=== PATIENT | male | born 1975 | race Caucasian/White ===

== ENCOUNTER 2021-12-25 08:38 | Emergency (ER) | payer OTHER, SELFPAY ==
[2021-12-25 08:52] VITALS: BP 123/84; PULSE 78; RESP 14; TEMP 36.7; O2SAT 97
--- NOTE | 2021-12-25 09:24 | ED.ABDPAIN ---
HPI - Abdominal Pain General Chief Complaint: Abdominal Pain Stated Complaint: Lower abdominal pains Time Seen by Provider: 12/25/21 09:26 Source: patient, RN notes reviewed and old records reviewed Mode of arrival: ambulatory Limitations: no limitations History of Present Illness HPI narrative: 46-year-old male who presents to [facility] care with complaints of 1 week duration of loose formed stools, some abdominal cramping,with decreased appetite. Patient states that that he has discomfort under is umbilicus region intermittent with fever of around 100F for the past 24 hours. He states that he called his PCP and cant get in to be seen till later in the week. Patient reports that he was on antibiotics the week of December for a sinus infection and recently he went to [facility]. Patient reports that he has not had any vomiting or nausea, states mucous noted in stools, denies any known acute foul or seedy stools. MD elicited complaint: abdominal pain and other (loose formed stools) Pertinent past history: other (recent antibiotic use) Onset (ago): week(s) (1) Related Data Allergies Allergy/AdvReac Type Severity Reaction Status Date / Time No Known Allergies Allergy Verified 12/25/21 09:16 Review of Systems Review of Systems: CONSTITUTIONAL: Low grade fevers, chills, or sweats. EYES: Denies visual changes, redness, or discharge. ENT: Denies rhinorrhea, congestion, sore throat, or otalgia. CARDIOVASCULAR: Denies chest pain, palpitations, or edema. RESPIRATORY: Denies cough or dyspnea. GASTROINTESTINAL: Positive for abdominal pain mid abdomen under umbilicus,no nausea, vomiting, positive for loose formed stools. GENITOURINARY: Denies dysuria or hematuria. SKIN: Denies rash or itching. MUSCULOSKELETAL: Denies back pain, joint pain, or myalgia. NEUROLOGIC: Denies headache, numbness, or weakness. PSYCHIATRIC: Positive history of anxiety or depression. All systems reviewed & are unremarkable except as noted in HPI and below PMFSH Past Medical History Medical History Anxiety and depression Essential (primary) hypertension Mixed hyperlipidemia Social History Social History (Updated 12/26/21 @ 17:06 by Marlyn Encarnacion NP) Smoking status: Never smoker Alcohol intake: current Substance use type: does not use Living arrangements: with family Gender identity (if verbalized by the patient): Male Comments At time of signature, agree with nursing past medical, surgical, social and family history. There is no relevant family history pertinent to the presenting complaint Exam Narrative: GENERAL: Well-appearing, well-nourished, and in no acute distress. HEAD: Normocephalic, atraumatic. EYES: PERRLA and EOMI. ENT: Nares clear, no rhinorrhea or epistaxis. Mucous membranes moist.TM's normal with good light reflex throat pink with no lesions or exudates no tonsil enlargement NECK: Supple.no lymphadenopathy CHEST: Clear to auscultation. No respiratory distress.SAO2 97% on room air HEART: Regular rate and rhythm. No murmur heard. Normal peripheral pulses. ABDOMEN: Soft, tender below umbilicus, negative for any McBurney tenderness, nondistended, normal active bowel sounds. EXTREMITIES: Normal range of motion. No edema. SKIN: Warm, dry, no rash. NEURO: No focal deficits. Alert and oriented x3. Course Course Level of Care: Express Care Visit Vital Signs Vital signs: Vital Signs Temperature 36.7 C 12/25/21 08:52 Pulse Rate 78 12/25/21 08:52 Respiratory Rate 14 12/25/21 08:52 Blood Pressure 123/84 12/25/21 08:52 Pulse Oximetry 97 12/25/21 08:52 Oxygen Delivery Room Air 12/25/21 08:52 Temperature 36.7 C 12/25/21 08:52 Pulse Rate 78 12/25/21 08:52 Respiratory Rate 14 12/25/21 08:52 Blood Pressure 123/84 12/25/21 08:52 Pulse Oximetry 97 12/25/21 08:52 Oxygen Delivery Room Air 12/25/21 08:52 MDM - Abdominal Pain Differentia
== END 2021-12-25 10:00 | disposition home or self-care (01) ==
PROVIDERS: Emergency Provider Registered Nurse; PCP Family Medicine
DX: K52.9 Noninfective gastroenteritis and colitis, unspecified (principal); I10 Essential (primary) hypertension; E78.2 Mixed hyperlipidemia; F41.9 Anxiety disorder, unspecified; F32.A Depression, unspecified
CPT/HCPCS: 99213; G0463

== ENCOUNTER 2021-12-28 10:43 | Emergency (ER) | payer OTHER, SELFPAY ==
--- NOTE | ~2021-12-28 | CT_ITS ---
EXAMINATION: CT abdomen pelvis w con INDICATION: Abdominal cramping and diarrhea TECHNIQUE: Computed tomographic images of the abdomen and pelvis were obtained after the administrati on of 100 cc of Omnipaque 350 intravenous contrast. The dose-length product (DLP) was 728.83 mGy-cm. Automated exposure control and iterative reconstruction technique were employed. COMPARISON: None available FINDINGS: Minimal dependent atelectasis is present in the lung bases. The heart size is normal. Cysts of the liver measure up to 12 mm in the left hepatic lobe. The spleen, pancreas, gallbladder, and ad renal glands are normal. The kidneys are unremarkable. No pathologically enlarged abdominal or pelvic lymph nodes are identified. There is no free intraperitoneal gas or evidence of bowel obstruction. C olonic diverticulosis is present without evidence of diverticulitis. There is wall thickening of the colon from the distal descending colon through the rectum. The appendix is normal. There is mild lumb ar spondylosis. IMPRESSION: 1. Wall thickening of the colon from the distal descending colon through the rectum, consistent with colitis. Reviewed, dictated and finalized at location B. IMPRESSION: 1. Wall thickening of the colon from the distal descending colon through the re ctum, consistent with colitis.
[2021-12-28 10:55] VITALS: BP 143/96; PULSE 72; RESP 15; TEMP 37; O2SAT 100
[2021-12-28 11:26] LABS: Basophils Percent Auto 0.4 % (0.2-1.2); Eosinophils Absolute Auto 0.2 K/mm3 (0-0.3); Eosinophils Percent Auto 2.2 % (0-4.4); Hematocrit 43.4 % (42.0-52.0); Hemoglobin 14.3 g/dL (14.0-18.0); Immature Granulocyte Absolute 0.04 K/mm3 (0.00-0.031); Immature Granulocyte Percent A 0.6 % (0-0.5); Lymphocytes Absolute Auto 1.24 K/mm3 (0.9-3.2); Lymphocytes Percent Auto 18.4 % (18.3-44.2); Mean Corpuscular HGB Conc 32.9 g/dl (32-36); Mean Corpuscular Hemoglobin 30.6 pg (26-34); Mean Corpuscular Volume 92.7 fl (80-100); Mean Platelet Volume 9.6 fl (7.4-10.4); Monocytes Absolute Auto 0.7 K/mm3 (0.1-0.6); Monocytes Percent Auto 10.8 % (2.6-8.5); Neutrophils Absolute Auto 4.6 K/mm3 (1.3-6.7); Neutrophils Percent Auto 67.6 % (45.5-73.1); Platelet Count Result 262 k/mm3 (150-375); Red Blood Count 4.68 M/mm3 (4.6-6.20); Red Cell Distribution Width 11.9 % (11.5-14.5); White Blood Count 6.7 K/mm3 (4.5-10.0)
[2021-12-28 11:31] LABS: Lactic Acid Reflex 1.2 mmol/L (0.7-2.0)
[2021-12-28 11:32] LABS: Alanine Aminotransferase 16 U/L (6-50); Albumin Level 4.5 g/dL (3.5-5.1); Alkaline Phosphatase 75 U/L (38-126); Anion Gap 11 mmol/L (8-16); Aspartate Amino Transferase 18 U/L (17-59); Bilirubin,Total 0.7 mg/dL (0.2-1.3); Blood Urea Nitrogen 14 mg/dL (9-20); Calcium 8.6 mg/dL (8.4-10.2); Carbon Dioxide 24 mmol/L (22-30); Chloride 107 mmol/L (98-107); Estimated CRCL calculation 85 ml/min; Estimated Glomerular Filt Rate > 60; Glucose 106 mg/dL (65-110); Lipase 57 U/L (23-300); Sodium 142 mmol/L (137-145)
[2021-12-28] MEDS: SODIUM CHLORIDE 0.9% IV 1,000 ML 999 ML IV CONT (11:46)
[2021-12-28 11:50] VITALS: BP 137/92; PULSE 72; RESP 15; O2SAT 96
[2021-12-28 12:03] LABS: Appearance Urine Clear (Clear); Bilirubin Urine Negative (Negative); Blood Urine Negative (Negative); Color Urine Yellow (Yellow); Glucose Urine UA Negative (Negative); Ketones Urine Negative (Negative); Leukocyte Esterase Ur Trace LEU/UL (Negative); Nitrate Urine Negative (Negative); Protein Urine Trace mg/dL (Negative); Specific Grav Ur >= 1.030 (1.001-1.035); Urobilinogen Urine 0.2 mg/dL (<2.0); pH Urine 5.5 (5.0-9.0)
[2021-12-28 12:10] LABS: Mucus Urine Few /lpf; WBC Urine 21-30 /hpf
[2021-12-28 12:11] LABS: Add Urine Microscopic? YES
[2021-12-28 13:12] VITALS: BP 134/88; PULSE 67; RESP 15; O2SAT 98
[2021-12-28 13:34] LABS: Lactic Acid Reflex 0.9 mmol/L (0.7-2.0)
[2021-12-28 15:00] VITALS: BP 114/66; PULSE 88; RESP 14; O2SAT 100
[2021-12-28 15:17] LABS: Toxigenic C. Diff NEGATIVE (NEGATIVE)
[2021-12-28] MEDS: metroNIDAZOLE 250 MG TABLET 500 MG PO (16:24)
[2021-12-28] MEDS: ERYTHROMYCIN OPHTH OINTMENT 1 GM TUBE 1 APPLIC EACH EYE (16:25)
[2021-12-28] MEDS: CIPROFLOXACIN 500 MG TAB PO (16:25)
[2021-12-28 16:31] VITALS: BP 138/72; PULSE 72; RESP 18; O2SAT 98
--- NOTE | 2021-12-28 16:32 | ED.GENADULT ---
HPI - General Adult General Chief complaint: Nausea/Vomiting/Diarrhea Stated complaint: diarrhea Time Seen by Provider: 12/28/21 10:48 Source: RN notes reviewed History of Present Illness HPI narrative: Patient presents emergency department from home for diarrhea. Patient states has been having diarrhea for the past 10 days states he is having numerous episodes a day that are yellowish in appearance. States is associated with lower abdominal pain described as cramping. Patient states he was on Augmentin for a sinus infection approximately 3 weeks ago he denies having any fevers or chills nausea vomiting or any other symptoms. He had gone to urgent care on Saturday and been referred to his PCP where blood work was obtained and stool culture sent on Saturday but he does not have the results of these back yet patient also reports that he has had bilateral eye redness for the past 2 days with crusting over of his eyelids in the a.m. is concern for bilateral conjunctivitis. He does wear glasses but does not wear contacts Related Data Allergies Allergy/AdvReac Type Severity Reaction Status Date / Time No Known Allergies Allergy Verified 12/28/21 10:58 Review of Systems Review of Systems: Gen.: Denies fevers or chills Eyes: See HPI ENT: Denies congestion Respiratory: Denies shortness of breath or cough CV: Denies chest pain GI: See HPI denies burning, urgency, frequency or hematuria Musculoskeletal: Denies back pain or muscle pain Neuro: Denies numbness, tingling, weakness or focal weakness Skin: Denies rash Except as documented, all other systems reviewed and negative PMFSH Past Medical History Medical History Anxiety and depression Essential (primary) hypertension Mixed hyperlipidemia Social History Social History Smoking status: Never smoker Alcohol intake: current Substance use type: does not use Gender identity (if verbalized by the patient): Male Exam Narrative: APPEARANCE: No acute distress, nontoxic, resting in bed HEENT: Normocephalic, atraumatic, OMM Eyes: PERRL, EOMI, bilateral conjunctival erythema no swelling of the bilateral upper or lower eyelids, no foreign body seen there is thick yellow discharge RESPIRATORY: No respiratory distress, clear to auscultation bilaterally with no rhonchi wheezing or rales CARDIOVASCULAR: RRR s murmur ABDOMINAL: Soft nondistended tender palpation right lower quadrant left lower quadrant no tenderness right upper quadrant left upper quadrant no rebound or guarding MUSCULOSKELETAl: Moves all extremities. No clubbing, cyanosis or edema. NEURO: Awake and alert. Following commands, speech normal, no focal deficits SKIN:: Warm, dry. Normal Color PSYCHIATRIC: Normal affect/mood Course Course Emergency Course: Called patient's PCP and discussed with [employer] on-call stool results are not back yet except for Giardia that was negative for C. difficile has not been returned C. difficile obtained in ED that shows negative results Discussed with Dr. Diaz presentation work-up at this time explained to start patient on Cipro and Flagyl discharged to follow-up as an outpatient Discussed with patient results of workup and diagnosis. Discussed need for follow-up with primary care, proper use of medication, and reasons to return to the emergency department. Patient understands and agrees to current treatment plan Vital Signs Vital signs: Vital Signs Temperature 98.6 F 12/28/21 10:55 Pulse Rate 72 12/28/21 10:55 Respiratory Rate 15 12/28/21 10:55 Blood Pressure 143/96 H 12/28/21 10:55 Pulse Oximetry 100 12/28/21 10:55 Oxygen Delivery Room Air 12/28/21 10:55 Temperature 98.6 F 12/28/21 10:55 Pulse Rate 72 12/28/21 16:31 Respiratory Rate 18 12/28/21 16:31 Blood Pressure 138/72 12/28/21 16:31 Pulse Oximetry 98 12/28/21 16:31 Oxygen Delive
== END 2021-12-28 17:12 | disposition home or self-care (01) ==
PROVIDERS: Emergency Provider Emergency Medicine; PCP Family Medicine
DX: K52.9 Noninfective gastroenteritis and colitis, unspecified (principal); H10.33 Unspecified acute conjunctivitis, bilateral; I10 Essential (primary) hypertension; E78.2 Mixed hyperlipidemia; R82.998 Other abnormal findings in urine
CPT/HCPCS: 36415; 74177; 80053; 81001; 83605; 83690; 85025; 87040; 87086; 87493; 96360; 99284; A9270; J7030; Q9967

== ENCOUNTER 2022-01-08 08:05 | Inpatient (IN) | payer OTHER, SELFPAY ==
[2022-01-08] VITALS (17 sets, daily range): BP systolic 92–126; BP diastolic 64–85; PULSE 73–91; RESP 16–22; TEMP 36.4–36.9; O2SAT 94–99; BMI 29.9
--- NOTE | ~2022-01-08 | CT_ITS ---
EXAMINATION: CT abdomen pelvis w con DATE: 01/08/2022 09:40 INDICATION: Generalized abdominal pain. Diarrhea. TECHNIQUE: Computed tomography (CT) of the abdomen and pelvis was performed with 100 mL Omnipaque 350 intravenous contrast. Automated exposure control and iterative reconstruction technique were employe d. The dose-length product was 739.16 mGy-cm. COMPARISON: CT abdomen and pelvis 12/28/2021 FINDINGS: The visualized portions of the lung bases demonstrate mild atelectasis. No pleural effusion . The heart size is normal. No pericardial effusion. There are cysts in the liver measuring up to 11 mm. The gallbladder is normal. There is mild splenomegaly. The pancreas, adrenal glands, and kidneys are normal. There are scattered diverticula in the colon. There is mild wall thickening of the rectos igmoid. There are no dilated loops of bowel. The appendix is normal. There are no pathologically enla rged lymph nodes. There is prominent fat in left inguinal canal that may be a hernia. There is no parth e intraperitoneal fluid. There is mild lumbar spondylosis. IMPRESSION: 1. Mild wall thickening of the rectosigmoid with interval improvement, consistent with colitis. Reviewed, dictated and finalized at location A. IMPRESSION: 1. Mild wall thickening of the rectosigmoid with interval improvement, consiste nt with colitis.
[2022-01-08] MEDS: ONDANSETRON INJ 4 MG/2 ML VIAL IV PUSH (09:01)
[2022-01-08] MEDS: SODIUM CHLORIDE 0.9% IV 1,000 ML 999 ML IV CONT (09:01)
[2022-01-08 09:09] LABS: Basophils Percent Auto 0.4 % (0.2-1.2); Eosinophils Absolute Auto 0.1 K/mm3 (0-0.3); Eosinophils Percent Auto 1.5 % (0-4.4); Hemoglobin 12.7 g/dL (14.0-18.0); Immature Granulocyte Absolute 0.07 K/mm3 (0.00-0.031); Immature Granulocyte Percent A 0.8 % (0-0.5); Lymphocytes Absolute Auto 0.96 K/mm3 (0.9-3.2); Lymphocytes Percent Auto 11.6 % (18.3-44.2); Mean Corpuscular HGB Conc 32.6 g/dl (32-36); Mean Corpuscular Hemoglobin 29.7 pg (26-34); Mean Corpuscular Volume 91.3 fl (80-100); Mean Platelet Volume 9.4 fl (7.4-10.4); Monocytes Absolute Auto 0.7 K/mm3 (0.1-0.6); Neutrophils Absolute Auto 6.4 K/mm3 (1.3-6.7); Neutrophils Percent Auto 77.7 % (45.5-73.1); Platelet Count Result 252 k/mm3 (150-375); Red Blood Count 4.27 M/mm3 (4.6-6.20); Red Cell Distribution Width 11.9 % (11.5-14.5); White Blood Count 8.3 K/mm3 (4.5-10.0)
[2022-01-08 09:11] LABS: Appearance Urine Slightly Cloudy (Clear); Bilirubin Urine 1+ (Negative); Color Urine Yellow (Yellow); Glucose Urine UA Negative (Negative); Ketones Urine Negative (Negative); Leukocyte Esterase Ur 1+ LEU/UL (Negative); Nitrate Urine Negative (Negative); Protein Urine 1+ mg/dL (Negative); Specific Grav Ur >= 1.030 (1.001-1.035); Urobilinogen Urine 0.2 mg/dL (<2.0)
[2022-01-08 09:14] LABS: Mucus Urine Few /lpf; Squamous Epithelial Cell Urine Rare /hpf (Few); WBC Clumps Urine Present /HPF; WBC Urine 21-30 /hpf
[2022-01-08 09:15] LABS: Add Urine Microscopic? YES; Blood Urine Trace-Intact (Negative)
[2022-01-08 09:25] LABS: Alanine Aminotransferase 13 U/L (6-50); Albumin Level 3.5 g/dL (3.5-5.1); Alkaline Phosphatase 51 U/L (38-126); Anion Gap 6 mmol/L (8-16); Aspartate Amino Transferase 17 U/L (17-59); Bilirubin,Total 0.7 mg/dL (0.2-1.3); Blood Urea Nitrogen 11 mg/dL (9-20); Calcium 8.4 mg/dL (8.4-10.2); Carbon Dioxide 29 mmol/L (22-30); Chloride 102 mmol/L (98-107); Estimated CRCL calculation 82 ml/min; Estimated Glomerular Filt Rate > 60; Glucose 109 mg/dL (65-110); Lipase 48 U/L (23-300); Potassium 3.4 mmol/L (3.4-5.0); Sodium 137 mmol/L (137-145)
[2022-01-08 09:26] LABS: Lactic Acid Reflex 0.8 mmol/L (0.7-2.0)
--- NOTE | 2022-01-08 09:37 | ED.GENADULT ---
HPI - General Adult General Chief complaint: Unspecified Stated complaint: abd pain, pink eye, joint pain Time Seen by Provider: 01/08/22 08:43 History of Present Illness HPI narrative: Patient is a 46-year-old gentleman who presents the emergency department with chief complaint of abdominal pain diarrhea and conjunctivitis. The patient states that he was diagnosed with colitis several weeks ago started on oral antibiotics seen by GI in the clinic by the advanced practice provider and scheduled for a colonoscopy. The patient states that he has had conjunctivitis during this time. He was to see ophthalmology. The patient states that he is also developed generalized body aches and including in his joints. Patient states that he has not been officially diagnosed with a inflammatory bowel disorder at this point Related Data Allergies Allergy/AdvReac Type Severity Reaction Status Date / Time No Known Allergies Allergy Verified 01/08/22 08:21 Review of Systems Review of Systems: A 10 system review of systems was completed on the patient and is negative except for what is stated in the HPI. Nursing and ancillary documentation was reviewed. [facility] Past Medical History Medical History Anxiety and depression Essential (primary) hypertension Mixed hyperlipidemia Social History Social History Smoking status: Never smoker Alcohol intake: current Substance use type: does not use Gender identity (if verbalized by the patient): Male Exam Narrative: GENERAL: Well-appearing, well-nourished, and in no acute distress. HEAD: Normocephalic, atraumatic. EYES: PERRLA and EOMI. injected conjunctive a present bilaterally ENT: Nares clear, no rhinorrhea or epistaxis. Mucous membranes moist. NECK: Supple. CHEST: Clear to auscultation. No respiratory distress. HEART: Regular rate and rhythm. No murmur heard. Normal peripheral pulses. ABDOMEN: Soft, diffusely tender to palpation mildly nondistended, normal active bowel sounds. EXTREMITIES: Normal range of motion. No edema. SKIN: Warm, dry, no rash. NEURO: No focal deficits. Alert and oriented x3. PSYCH: Normal mood and affect. Course Vital Signs Vital signs: Vital Signs Temperature 36.9 C 01/08/22 08:07 Pulse Rate 91 01/08/22 08:07 Respiratory Rate 18 01/08/22 08:07 Blood Pressure 109/64 01/08/22 08:07 Pulse Oximetry 98 01/08/22 08:07 Oxygen Delivery Room Air 01/08/22 08:07 Temperature 36.9 C 01/08/22 08:07 Pulse Rate 78 01/08/22 10:45 Respiratory Rate 21 H 01/08/22 10:45 Blood Pressure 108/79 01/08/22 10:45 Pulse Oximetry 98 01/08/22 10:45 Oxygen Delivery Room Air 01/08/22 08:07 Medical Decision Making Vital Signs Vital Signs: Vital Signs Temperature 36.9 C 01/08/22 08:07 Pulse Rate 91 01/08/22 08:07 Respiratory Rate 18 01/08/22 08:07 Blood Pressure 109/64 01/08/22 08:07 Pulse Oximetry 98 01/08/22 08:07 Oxygen Delivery Room Air 01/08/22 08:07 Temperature 36.9 C 01/08/22 08:07 Pulse Rate 78 01/08/22 10:45 Respiratory Rate 21 H 01/08/22 10:45 Blood Pressure 108/79 01/08/22 10:45 Pulse Oximetry 98 01/08/22 10:45 Oxygen Delivery Room Air 01/08/22 08:07 Lab Data Result diagrams: 01/08/22 09:01 01/08/22 09:01 Labs: Lab Results 01/08/22 01/08/22 01/08/22 Range/Units 08:59 09:01 09:01 WBC 8.3 (4.5-10.0) K/mm3 RBC 4.27 L (4.6-6.20) M/mm3 Hgb 12.7 L (14.0-18.0) g/dL Hct 39.0 L (42.0-52.0) % MCV 91.3 (80-100) fl MCH 29.7 (26-34) pg MCHC 32.6 (32-36) g/dl RDW 11.9 (11.5-14.5) % Plt Count 252 (150-375) k/mm3 MPV 9.4 (7.4-10.4) fl Immature Gran % (Auto) 0.8 H (0-0.5) % Neut % (Auto) 77.7 H (45.5-73.1) % Lymph % (Auto) 11.6 L (18.3-44.2) % [place] % (Auto)
[2022-01-08] MEDS: methylPREDNISolone SOD SUCC 125 MG VIAL IV PUSH (12:11)
--- NOTE | 2022-01-08 12:45 | PM.IMHP ---
H&P: HPI History of Present Illness Date/Time: 01/08/22 12:45 Chief Complaint: Diarrhea with abdominal pain Narrative: This is a 46-year-old male patient who came to the emergency room with complaints of abdominal cramping and diarrhea. The patient had been in the emergency room on 12/25/2021 with the same complaints and was diagnosed with colitis. The patient stated that he has had a round of Cipro and Flagyl for 10 days now. The patient stated that he did see Dr. Diaz midlevel. The patient stated that he had a full stool workup. He is had some blood in his stools well. He has had no prior history of having any colonoscopies, diverticulosis or diverticulitis. On 12/28/2021 he did have an abdominal pelvis CT which shows wall thickening of the colon from the distal descending colon through the cecum consistent with colitis. The patient stated that he has lost approximately 15 lb since he was last seen in the emergency room. The patient stated that he was multiple stools daily. He was started on Bentyl but still continues to have abdominal cramping. Today CT scan shows mild wall thickening of rectosigmoid with interval improvement consistent with colitis. Patient was also found to have a UTI and was started on Zosyn today. H&H is 12.7 and 39.0 today it was previously normal. The patient was started on IV fluids, Solu-Medrol and Zosyn in the emergency room. The patient is being admitted to observation status on the date of service 01/08/2022. Review of Systems Review of Systems: see hpi All systems reviewed & are unremarkable except as noted in HPI and below Constitutional: Constitutional: Reports as per HPI and Reports no additional constitutional complaints Eyes: Eyes: Reports as per HPI and Reports no additional eye complaints ENT: Reports system reviewed and no additional complaints, except as documented and Reports Normal hearing present Cardiovascular: Cardiovascular: Reports no additional cardiovascular complaints Respiratory: Respiratory: Reports no additional respiratory complaints and Reports no additional respiratory complaints Gastrointestinal: Gastrointestinal: Reports as per HPI and Reports no additional gastrointestinal complaints Musculoskeletal: Musculoskeletal: Reports no additional musculoskeletal complaints Integumentary/Breasts: Skin/Breast: Reports system reviewed and no additional complaints, except as docu and Reports as per HPI Neurologic: Reports system reviewed and no additional complaints, except as documented, Reports as per HPI and Reports Normal hearing present Psychiatric: Psychiatric: Reports no additional psychiatric complaints and Reports as per HPI Endocrine: Endocrine: Reports no additional endocrine complaints Hematologic/Lymphatic: Hematologic/Lymphatic: Reports no additional hematologic/lymphatic complaints Allergic/Immunologic: Allergic/Immunologic: Reports no additional allergic/immunologic complaints [facility] Past Medical History Medical History (Updated 01/08/22 @ 13:34 by Afia Matson NP) Anxiety and depression 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 He is a lifelong nonsmoker. He does not use any alcohol marijuana or illicit drugs. His is the durable power finance attorney for healthcare. Code status full code Smoking status: Never smoker Alcohol intake
--- NOTE | 2022-01-08 13:21 | ADMGEN ---
This patient, Donte Martin, was admitted to [facility] Surg Room 326-01. Patient/family oriented to hospital policies and general routines including ID bracelet, bed and alarms, visiting hours, pain management, procedures, bathroom and other care routines, personal items, smoking policy, room service/diet, and visiting hours. Information on how to activate the Rapid Response Team has been discussed. Patient/Family are encouraged to report perceived risks to care and to ask questions if they do not understand what they are told or what they should do.
[2022-01-08 13:57] LABS: Hematocrit 39.1 % (42.0-52.0); Hemoglobin 12.7 g/dL (14.0-18.0)
--- NOTE | 2022-01-08 14:01 | WPDGICN ---
Assessment and Plan Assessment and plan (1) Colitis: Code(s): K52.9 - Noninfective gastroenteritis and colitis, unspecified Status: Acute Assessment and Plan: over a month of symptoms including extraintestinal component such as eye irritation, joint pain did not respond to antibiotic and stool negative for obvious infection most likely new diagnosis of IBD (also had elevated calprotectin in stool) will do colonoscopy tomorrow with bx get TB, HBV and HIV status may need iv steroids and mesalamine based on findings, even biologics if confirm diagnosis of IBD (2) Diarrhea: Code(s): R19.7 - Diarrhea, unspecified Status: Acute (3) Abdominal pain: Code(s): R10.9 - Unspecified abdominal pain Status: Acute (4) Weight loss: Code(s): R63.4 - Abnormal weight loss Status: Acute (5) Conjunctivitis: Code(s): H10.9 - Unspecified conjunctivitis Status: Acute Assessment and Plan: ? related to IBD, autoimmune component (6) Joint pain: Code(s): M25.50 - Pain in unspecified joint Status: Acute Assessment and Plan: will get serology for RA, also get [facility] Consult Note Consult date/time: 01/08/22 14:01 Reason for consult: colitis, abdominal pain, weight loss HPI: Donte Martin is a 46 year old male who was just recently evaluated in the office for lower abdominal pain and diarrhea which has been going on for more than a month. He says that 1.5 month ago noted loose stools but started with cramping about 1 month, then frequent diarrhea sometimes with small amount of blood and also night time awakenings because urgency and diarrhea, reports mucus in stool. Also developed blood shot eyes, which prompted him to follow up in ER and referred to see ophthalmology, prescribed abx eye drops. CT revealed wall thickening of the colon from the distal descending colon through the rectum, consistent with colitis and given cipro an flagyl with only minimal relief. Stool sample negative for any infection but calprotectin is elevated. Also recent onset of joint pain in knees, knuckles. He lost about 15 lb because constant diarrhea. He came back to ER because ongoing symptoms, never had a colonoscopy. Review of Systems Constitutional: Constitutional: Reports chills, Reports lethargy and Reports weight loss Eyes: Eyes: Reports irritation ENT: Reports Normal hearing present Cardiovascular: Cardiovascular: Denies chest pain Respiratory: Respiratory: Denies cough Gastrointestinal: Gastrointestinal: Reports abdominal pain and Reports diarrhea Genitourinary: Genitourinary: Denies hematuria Musculoskeletal: Musculoskeletal: Reports arthralgias and Reports joint swelling Integumentary/Breasts: Skin/Breast: Denies pruritus Neurologic: Denies Abnormal speech present Psychiatric: Psychiatric: Denies anxiety PMFSH Past Medical History Medical History (Updated 01/08/22 @ 14:10 by Malick Watson MD) Anxiety and depression 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 He is a lifelong nonsmoker. He does not use any alcohol marijuana or illicit drugs. His is the durable power civil litigation attorney for healthcare. Code status full code Smoking status: Never smoker Alcohol intake: current Substance use type: does not
[2022-01-08] MEDS: SODIUM CHLORIDE 0.9% IV 1,000 ML 125 ML IV CONT (15:03)
[2022-01-08] MEDS: polyethylene glycoL 3350 238 GM BOTTLE PO (17:51)
[2022-01-08] MEDS: BISACODYL 5 MG TABLET EC 20 MG PO (17:57)
[2022-01-08 19:10] LABS: IFOB Positive Control Positive; Immunochemical Fecal Occult Bl Positive (N)
[2022-01-08 19:19] LABS: Hematocrit 44.7 % (42.0-52.0); Hemoglobin 14.7 g/dL (14.0-18.0)
[2022-01-08] MEDS: ATORVASTATIN 10 MG TABLET PO (21:17)
[2022-01-08] MEDS: SERTRALINE HCL 50 MG TABLET 200 MG PO (21:17)
[2022-01-08] MEDS: methylPREDNISolone SOD SUCC 40 MG VIAL 20 MG IV PUSH (21:17)
[2022-01-09] VITALS (9 sets, daily range): BP systolic 98–133; BP diastolic 65–89; PULSE 62–77; RESP 15–23; TEMP 35.9–36.6; O2SAT 94–100; BMI 29.9
[2022-01-09 01:26] LABS: Hematocrit 38.9 % (42.0-52.0)
[2022-01-09] MEDS: methylPREDNISolone SOD SUCC 40 MG VIAL 20 MG IV PUSH ×3 (05:49→22:35)
[2022-01-09] MEDS: SODIUM CHLORIDE 0.9% IV 1,000 ML 125 ML IV CONT ×2 (05:51→20:20)
[2022-01-09 06:14] LABS: Basophils Percent Auto 0.1 % (0.2-1.2); Hematocrit 38.3 % (42.0-52.0); Hemoglobin 12.9 g/dL (14.0-18.0); Immature Granulocyte Absolute 0.08 K/mm3 (0.00-0.031); Immature Granulocyte Percent A 0.8 % (0-0.5); Lymphocytes Absolute Auto 0.79 K/mm3 (0.9-3.2); Mean Corpuscular HGB Conc 33.7 g/dl (32-36); Mean Corpuscular Hemoglobin 30.2 pg (26-34); Mean Corpuscular Volume 89.7 fl (80-100); Mean Platelet Volume 9.5 fl (7.4-10.4); Monocytes Absolute Auto 0.4 K/mm3 (0.1-0.6); Monocytes Percent Auto 4.4 % (2.6-8.5); Neutrophils Absolute Auto 8.5 K/mm3 (1.3-6.7); Neutrophils Percent Auto 86.7 % (45.5-73.1); Platelet Count Result 301 k/mm3 (150-375); Red Blood Count 4.27 M/mm3 (4.6-6.20); Red Cell Distribution Width 11.6 % (11.5-14.5); White Blood Count 9.9 K/mm3 (4.5-10.0)
[2022-01-09 06:32] LABS: Alanine Aminotransferase 12 U/L (6-50); Albumin Level 3.4 g/dL (3.5-5.1); Alkaline Phosphatase 51 U/L (38-126); Anion Gap 8 mmol/L (8-16); Aspartate Amino Transferase 21 U/L (17-59); Bilirubin,Total 0.4 mg/dL (0.2-1.3); Blood Urea Nitrogen 10 mg/dL (9-20); CRP 4.2 mg/dL (<1.0); Calcium 8.5 mg/dL (8.4-10.2); Carbon Dioxide 25 mmol/L (22-30); Chloride 103 mmol/L (98-107); Estimated CRCL calculation 91 ml/min; Estimated Glomerular Filt Rate > 60; Glucose 141 mg/dL (65-110); Magnesium 2.2 mg/dL (1.6-2.3); Potassium 3.8 mmol/L (3.4-5.0); Sodium 136 mmol/L (137-145)
[2022-01-09 07:14] LABS: Rheumatoid Factor < 8.6 IU/ML (<12)
[2022-01-09 07:20] LABS: Thyroid Stimulating Hormone Reflex 0.255 uIU/mL (0.465-4.68)
--- NOTE | 2022-01-09 07:45 | PC.NURSE ---
To GI Lab via wheelchair.
[2022-01-09 07:55] LABS: Free T4 Free Thyroxine Reflex 1.07 ng/dL (0.78-2.19)
[2022-01-09 07:57] LABS: HIV 1/2 Ab P24 Ag Result Negative (Negative)
[2022-01-09] MEDS: LACTATED RINGERS 1,000 ML 150 ML IV CONT (08:04)
--- NOTE | 2022-01-09 08:21 | WPDANESEPPF ---
Anes - Initial Pre Proc Eval Procedure: Operation Date: 01/09/22 13:00 Proposed Procedures p Colonoscopy - Malick Watson MD Date/Time: 01/09/22 08:21 Surgeon: Babs Lizama DO Pre Op Diagnosis: Colitis Patient Data Age: 46 Gender: M Height: 1.78 m Weight: 94.5 kg Last Vital Signs Temp 97.3 F L 01/09/22 08:00 Pulse 65 01/09/22 08:00 Resp 18 01/09/22 08:00 BP 114/77 01/09/22 08:00 Pulse Ox 98 01/09/22 08:00 O2 Del Method Room Air 01/09/22 08:00 Allergies Allergy/AdvReac Type Severity Reaction Status Date / Time No Known Allergies Allergy Verified 01/09/22 07:57 Home Medications Medication Instructions Recorded Confirmed Type ergocalciferol (vitamin D2) 1,250 1,250 mcg PO WEEKLY 90 days #13 12/01/21 01/08/22 Rx mcg (50,000 unit) capsule caps dicyclomine 20 mg tablet 20 mg PO TID PRN abdominal 01/02/22 01/08/22 Rx cramping #30 tabs loperamide 2 mg capsule (Imodium 2 mg PO Q6H PRN loose stool #10 01/02/22 01/08/22 Rx A-D) caps Flonase Allergy Relief 2 spray EACH NARE DAILY PRN 01/08/22 01/08/22 History Allergy Symptoms atorvastatin 10 mg tablet 10 mg PO HS 01/08/22 01/08/22 History moxifloxacin 0.5 % eye drops 1 drp EACH EYE TID 01/08/22 01/08/22 History sertraline 100 mg tablet 200 mg PO HS 01/08/22 01/08/22 History Laboratory Tests 01/08/22 01/08/22 01/08/22 08:59 09:01 09:01 WBC 8.3 K/mm3 K/mm3 (4.5-10.0) RBC 4.27 M/mm3 L M/mm3 (4.6-6.20) Hgb 12.7 g/dL L g/dL (14.0-18.0) Hct 39.0 % L % (42.0-52.0) MCV 91.3 fl fl (80-100) MCH 29.7 pg pg (26-34) MCHC 32.6 g/dl g/dl (32-36) RDW 11.9 % % (11.5-14.5) Plt Count 252 k/mm3 k/mm3 (150-375) MPV 9.4 fl fl (7.4-10.4) Immature Gran % (Auto) 0.8 % H % (0-0.5) Neut % (Auto) 77.7 % H % (45.5-73.1) Lymph % (Auto) 11.6 % L % (18.3-44.2) [place] % (Auto) 8.0 % % (2.6-8.5) Eos % (Auto) 1.5 % % (0-4.4) Baso % (Auto) 0.4 % % (0.2-1.2) Lymph # (Auto) 0.96 K/mm3 K/mm3 (0.9-3.2) [place] # (Auto) 0.7 K/mm3 H K/mm3 (0.1-0.6) Eos # (Auto) 0.1 K/mm3 K/mm3 (0-0.3) Baso # (Auto) 0.0 K/mm3 K/mm3 (0.0-0.1) Abs Immat Gran (auto) 0.07 K/mm3 H K/mm3 (0.00-0.031) Absolute Neuts (auto) 6.4 K/mm3 K/mm3 (1.3-6.7) Absolute Nucleated RBC 0.0 K/mm3 K/mm3 (0.0-0.012) Nucleated RBC % 0.0 % % (0.0-0.2) Sodium 137 mmol/L mmol/L (137-145) Potassium 3.4 mmol/L mmol/L (3.4-5.0) Chloride 102 mmol/L mmol/L (98-107) Carbon Dioxide 29 mmol/L mmol/L (22-30) Anion Gap 6 mmol/L L mmol/L (8-16) BUN 11 mg/dL mg/dL (9-20) Creatinine 1.00 mg/dL mg/dL (0.7-1.3) Estim Creat Clear Calc 82 ml/min ml/min Estimated GFR > 60 (59 - ) Glucose 109 mg/dL mg/dL (65-110) Lactic Acid Calcium 8.4 mg/dL mg/dL (8.4-10.2) Magnesium Ferritin Total Bilirubin 0.7 mg/dL mg/dL (0.2-1.3) AST 17 U/L U/L (17-59) ALT 13 U/L U/L (6-50) Alkaline Phosphatase 51 U/L U/L (38-126) C-Reactive Protein Total Protein 7.0 g/dL g/dL (6.3-8.2) Albumin 3.5 g/dL g/dL (3.5-5.1) Lipase 48 U/L U/L (23-300) TPMT Activity, Quant TSH (Reflex) Free T4 Total T3 Urine Color Yellow (Yellow) Urine Appearance Slightly cloudy (Clear) Urine pH 6.0 (5.0-9.0) Ur Specific [place] >= 1.030 (1.001-1.035) Urine Protein 1+ mg/dL H mg/dL (Negative) Urine Glucose (UA) Negative mg/dL mg/dL (Negative) Urine Ketones Negative mg/dL mg/dL (Negative)
[2022-01-09 09:43] LABS: Hepatitis B Surface Antigen Negative (Negative)
[2022-01-09 10:01] LABS: Hepatitis B Surface Anti Res Negative
[2022-01-09 10:20] LABS: Total Triiodothyronine (T3) 1.19 NG/ML (0.97-1.69)
--- NOTE | 2022-01-09 10:25 | PC.NURSE ---
Returned from GI Lab, via stretcher
[2022-01-09] MEDS: MOXIFLOXACIN HCL 0.5% 3 ML OPHTH SOLN 1 DROP EACH EYE ×3 (10:29→20:19)
[2022-01-09] MEDS: MESALAMINE 400 MG DELAYED RELEASE CAPSULE 800 MG PO ×2 (13:10→17:29)
--- NOTE | 2022-01-09 13:28 | PM.IMPN ---
Progress Note: A&P Assessment and Plan (1) Colitis: Code(s): K52.9 - Noninfective gastroenteritis and colitis, unspecified Status: Acute Assessment and Plan: Patient presented with c/o abd pain. CT consistent with rectosigmoid colitis. He recently completed a 10 day course of Cipro and Flagyl, but reports minimal improvement in symptoms while on and after antibiotics. GI consulted and appreciate recommendations. Colonoscopy today (01/09/22) demonstrating skip lesions concerning for Crohn's disease. Continue methylprednisolone 20 mg Q8 hours IV Mesalamine 800 mg TID started by GI continue Zosyn 3.375 mg IV Q6 hours for now. Advance diet per GI Continue PRN bentyl for cramping. (2) UTI (urinary tract infection): Code(s): N39.0 - Urinary tract infection, site not specified Status: Acute Assessment and Plan: C/o urinary frequency. Previously treated with Cipro and Flagyl x 10 days as above. 12/28/21 urine culture without growth. On zosyn for above and adjust per urine culture. urine culture pending. WBC 9.9 and afebrile. (3) Conjunctivitis: Code(s): H10.9 - Unspecified conjunctivitis Status: Acute Assessment and Plan: continue moxifloxacin eye gtt both eyes x 10 days (started Saturday01/05/22) could be consistent with ulcerative colitis CRP mildly elevated 4.2 (4) Low thyroid stimulating hormone (TSH) level: Code(s): R79.89 - Other specified abnormal findings of blood chemistry Status: Acute Assessment and Plan: TSH 0.255, normal Free T4 and Free T3. Patient is not currently on thyroid medications. repeat thyroid panel in 4-6 weeks. (5) Mixed hyperlipidemia: Code(s): E78.2 - Mixed hyperlipidemia Status: Chronic Assessment and Plan: Continue with atorvastatin Plan CODE STATUS: FULL CODE Disposition: Home Time Spent With Patient Time with patient: 15 - 25 minutes Subjective Date/time seen: 01/09/22 13:28 Patient found sitting up in bed. He reports his abdominal pain is improved. He had his colonoscopy early this morning and reports he was told he'd be starting steroids and other new medications. He has not eaten anything yet, but does endorse being hungry. No chest pain, SOB, nausea, emesis or melena. Review of Systems Review of Systems: All systems reviewed & are unremarkable except as noted in HPI and below Exam Narrative: General: No acute distress.? Well-developed and well-groomed?adult male. No oxygen. Mental Status/Psych: Awake, alert and oriented to person and place with clear speech. Neutral mood and affect. Pleasant and cooperative. Skin: Skin fair, warm, dry and intact without rashes or lesions. No open wounds. Good turgor.? HEENT: Normocephalic. Sclera is non-icteric. EOM intact. PERRL. Grossly normal hearing. Oral mucosa pink and moist. Oropharynx within normal limits. Neck: Supple. No JVD. Heart: S1 and S2 regular rate and rhythm. No murmurs, gallops, or rubs auscultated. NSR on telemetry. Chest: Respirations even and unlabored. Lung sounds are clear to auscultation in all lobes bilaterally without wheezes, rhonchi, or rales. Abdomen: Soft, round and mildly tender to palpation LLQ.? Bowel sounds present in all 4 quadrants. No guarding or grimacing. Extremities:? Grossly normal ROM all extremities. No edema. Radial and dorsalis pedis pulses +2 bilaterally. Neurological: No focal deficits. Cranial nerves 2-12 grossly intact. Objective Data Vital Signs Vital Signs: Vital Signs - 24 hr 01/08/22 13:32 01/08/22 13:55 01/08/22 22:00 Temperature 97.6 F 97.8 F Pulse Rate 73 75 Respiratory Rate 18 18 Blood Pressure 115/76 107/72 Pulse Oximetry 98 98 94 Oxygen Delivery Room Air 01/08/22 20:00 01/09/22 06:00 01/09/22 08:00 Temperature 97.3 F L 97.3 F L Pulse Rate 70 65 Respiratory Rate 18 18 Blood Pressure 120/66 114/77 Pulse Oximetry 96 98 Oxygen Delivery R
[2022-01-09] MEDS: SERTRALINE HCL 50 MG TABLET 200 MG PO (20:16)
[2022-01-09] MEDS: ATORVASTATIN 10 MG TABLET PO (20:16)
[2022-01-10] MEDS: methylPREDNISolone SOD SUCC 40 MG VIAL 20 MG IV PUSH ×3 (05:44→21:13)
[2022-01-10] MEDS: SODIUM CHLORIDE 0.9% IV 1,000 ML 125 ML IV CONT (05:47)
[2022-01-10 06:00] VITALS: BP 124/79; PULSE 70; RESP 20; TEMP 36.3; O2SAT 97
--- NOTE | 2022-01-10 07:40 | WPDANESPN ---
Anes - Prog Note Post-Op Date/Time: 01/10/22 07:40 Cardiovascular status: normal Respiratory status: normal Airway patency: baseline Mental status: baseline Post-Op hydration status: normal Vital Signs: Last Vital Signs Temp 97.4 F L 01/10/22 06:00 Pulse 70 01/10/22 06:00 Resp 20 01/10/22 06:00 BP 124/79 01/10/22 06:00 Pulse Ox 97 01/10/22 06:00 O2 Del Method Room Air 01/09/22 21:40 Pain Score (VAS): 06/12 I/O: Intake & Output 01/09/22 01/09/22 01/10/22 15:59 23:59 07:59 Intake Total 415 1290 1100 Balance 415 1290 1100 Laboratory Tests 01/09/22 05:53 01/09/22 05:53 01/09/22 01/09/22 01/09/22 05:52 05:53 05:53 Free T4 1.07 Total T3 Hep Bs Antigen Negative Hep Bs Antibody Negative HIV 1&2 Ab/P24 Ag 4thGn Negative 01/09/22 05:53 Free T4 Total T3 1.19 Hep Bs Antigen Hep Bs Antibody HIV 1&2 Ab/P24 Ag 4thGn Microbiology 01/08/22 08:59 Clean Catch Midstream Urine Culture - Final Patient Feedback: Patient satisfied with anesthetic care.
[2022-01-10] MEDS: MESALAMINE 400 MG DELAYED RELEASE CAPSULE 800 MG PO ×3 (08:22→17:54)
[2022-01-10] MEDS: MOXIFLOXACIN HCL 0.5% 3 ML OPHTH SOLN 1 DROP EACH EYE ×3 (08:23→17:54)
--- NOTE | 2022-01-10 12:37 | WPDGIPROGNO ---
Progress Note: A&P Assessment and Plan (1) Colitis: Code(s): K52.9 - Noninfective gastroenteritis and colitis, unspecified Status: Acute Assessment and Plan: probably IBD based on colonoscopy findings, pending path started on mesalamine, probably tomorrow we can transition to oral steroids with slow taper advance diet pending TB and HBV status, most likely will need biologics for which he can follow-up in office shortly after leaving the hospital (2) Diarrhea: Code(s): R19.7 - Diarrhea, unspecified Status: Acute (3) Weight loss: Code(s): R63.4 - Abnormal weight loss Status: Acute (4) Joint pain: Code(s): M25.50 - Pain in unspecified joint Status: Acute Assessment and Plan: pending other blood work Subjective Date/time seen: 01/10/22 12:37 Interval history: colonoscopy yesterday, he is feeling better today with less diarrhea Review of Systems Review of Systems: All systems reviewed & are unremarkable except as noted in HPI and below Exam Const: General: comfortable and no acute distress HENMT: General nose exam: Normal nares present Eyes: General: appearance normal, both eyes and all related structures Neck: Neck: no JVD Resp: Auscultation: clear to auscultation bilaterally Cardio: Rate: regular rate Rhythm: regular rhythm GI: Inspection: non-distended GI Palp: Yes Soft to palpation Skin: General skin exam: normal color Neuro: General: gait normal Speech: normal speech Extrem: General: normal to inspection Psych: Mental Status: mental status grossly normal Objective Data Vital Signs Vital Signs: Vital Signs - 24 hr 01/09/22 14:00 01/09/22 22:00 01/09/22 20:00 Temperature 96.7 F L 97.8 F Pulse Rate 71 66 Respiratory Rate 18 19 Blood Pressure 123/78 122/85 Pulse Oximetry 97 98 Oxygen Delivery Room Air 01/09/22 21:40 01/10/22 06:00 Temperature 97.4 F L Pulse Rate 70 Respiratory Rate 20 Blood Pressure 124/79 Pulse Oximetry 99 97 Oxygen Delivery Room Air Intake/Output Intake/Output: Intake & Output 01/07/22 01/08/22 01/09/22 01/10/22 23:59 23:59 23:59 23:59 Intake Total 1100 2805 2362 Balance 1100 2805 2362 Meds/Results Medications: Active Medications Generic Name Dose Route Start Last Admin Trade Name Freq PRN Reason Stop Dose Admin Atorvastatin Calcium 10 mg 01/08/22 21:00 01/09/22 20:16 Atorvastatin 10 Mg Tablet PO 10 mg HS MADHURI Administration Dicyclomine HCl 20 mg 01/08/22 19:38 Dicyclomine Hcl 10 Mg Capsule PO TID PRN abdominal cramping Fluticasone Propionate 2 spray 01/08/22 19:38 Fluticasone Propionate 0.05% Na Spr 16 Gm Btl (*Bkc) NASAL DAILY PRN Allergy Symptoms Piperacillin/Tazobactam/Dextrose 3.375 gm in 50 mls @ 100 mls/hr 01/08/22 18:00 01/10/22 06:15 Zosyn 3.375 Gm/D5w 50ml Pm IVPB Infused Q6H MADHURI Infusion Mesalamine 800 mg 01/09/22 13:00 01/10/22 08:22 Mesalamine 400 Mg Delayed Release Capsule PO 800 mg TID MADHURI Administration Moxifloxacin HCl 1 drop 01/09/22 09:00 01/10/22 08:23 Moxifloxacin Hcl 0.5% 3 Ml Ophth Soln EACH EYE 1 drop TID MADHURI Administration Prednisone 40 mg 01/11/22 08:00 Prednisone 20 Mg Tablet PO DAILY@0800 MADHURI Sertraline HCl 200 mg 01/08/22 21:00 01/09/22 20:16 Sertraline Hcl 50 Mg Tablet PO 200 mg HS MADHURI Administration Radiology Results: ITS Impressions Abdomen/Pelvis CT 01/08/22 09:54 IMPRESSION: 1. Mild wall thickening of the rectosigmoid with interval improvement, consistent with colitis. [facility] [place] Follow[place] [id number] [facility]
--- NOTE | 2022-01-10 12:46 | PM.IMPN ---
Progress Note: A&P Assessment and Plan (1) Colitis: Code(s): K52.9 - Noninfective gastroenteritis and colitis, unspecified Status: Acute Assessment and Plan: Patient presented with c/o abd pain. CT consistent with rectosigmoid colitis. He completed a 10 day course of Cipro and Flagyl from last admission, but reports minimal improvement in symptoms while on and after antibiotics. GI consulted and appreciate recommendations. Colonoscopy 01/09/22 demonstrating skip lesions concerning for Crohn's disease. Biopsy pending. Continue methylprednisolone 20 mg Q8 hours IV today and then transition to prednisone PO with 6-8 week slow taper. Mesalamine 800 mg TID started by GI continue Zosyn 3.375 mg IV Q6 hours Advance diet per GI Continue PRN bentyl for cramping. (2) UTI (urinary tract infection): Code(s): N39.0 - Urinary tract infection, site not specified Status: Acute Assessment and Plan: C/o urinary frequency. Previously treated with Cipro and Flagyl x 10 days as above. 12/28/21 urine culture without growth. On zosyn for above. urine culture without growth. Resolved, no current urinary symptoms. (3) Conjunctivitis: Code(s): H10.9 - Unspecified conjunctivitis Status: Acute Assessment and Plan: continue moxifloxacin eye gtt both eyes x 10 days (started Saturday01/05/22) could be consistent with ulcerative colitis CRP mildly elevated 4.2 Improving. (4) Low thyroid stimulating hormone (TSH) level: Code(s): R79.89 - Other specified abnormal findings of blood chemistry Status: Acute Assessment and Plan: TSH 0.255, normal Free T4 and Free T3. Patient is not currently on thyroid medications. repeat thyroid panel in 4-6 weeks. (5) Mixed hyperlipidemia: Code(s): E78.2 - Mixed hyperlipidemia Status: Chronic Assessment and Plan: Continue with atorvastatin Plan CODE STATUS: FULL CODE Disposition: Home. Probable discharge tomorrow if continues to improve. Time Spent With Patient Time with patient: 15 - 25 minutes Subjective Date/time seen: 01/10/22 12:46 Patient is 46 yo male presenting to the hospital for evaluation of persistent abdominal pain with imaging concerning for colitis and GI consult. Patient found sitting up in the bed eating lunch. He reports feeling well today. He denies abdominal pain, nausea or emesis. No fevers overnight. He had 3 loose stools without blood or mucous noted. He also reports his eyes are clearing and joint pain is improving. He reports dysuria and urinary frequency are improved. No flank pain. Review of Systems Review of Systems: All systems reviewed & are unremarkable except as noted in HPI and below Exam Narrative: General: No acute distress.? Mental Status/Psych: Awake. AOx4. Clear speech. Neutral mood and affect. Cooperative. Skin: Fair, warm, dry and intact without rashes or lesions. No open wounds. Good turgor.? HEENT: Normocephalic. Sclera is non-icteric. conjunctiva clear. Pupils equal and round. Grossly normal hearing. Oral mucosa pink and moist. Oropharynx within normal limits. Neck: Supple. No JVD. Heart: S1 and S2 regular rate and rhythm. No murmurs, gallops, or rubs auscultated. NSR on telemetry. Chest: Respirations even and unlabored. Lung sounds are clear to auscultation in all lobes bilaterally without wheezes, rhonchi, or rales. Abdomen: Soft, round and nontender to palpation.? Bowel sounds present in all 4 quadrants. No guarding or grimacing. Extremities:? Grossly normal ROM all extremities. No edema. Radial and dorsalis pedis pulses +2 bilaterally. Neurological: No focal deficits. Objective Data Vital Signs Vital Signs: Vital Signs - 24 hr 01/09/22 14:00 01/09/22 22:00 01/09/22 20:00 Temperature 96.7 F L 97.8 F Pulse Rate 71 66 Respiratory Rate 18 19 Blood Pressure 123/78 122/85 Pulse Oximetry 97 98 Oxygen Delivery Room Air 08
[2022-01-10 13:36] VITALS: BP 115/79; PULSE 71; RESP 20; TEMP 36.4; O2SAT 97
[2022-01-10] MEDS: ATORVASTATIN 10 MG TABLET PO (21:11)
[2022-01-10] MEDS: SERTRALINE HCL 50 MG TABLET 200 MG PO (21:11)
[2022-01-10 22:00] VITALS: BP 136/88; PULSE 72; RESP 20; TEMP 36.4; O2SAT 97
[2022-01-11 06:00] VITALS: BP 113/76; PULSE 70; RESP 19; TEMP 35.7; O2SAT 95
[2022-01-11 08:00] VITALS: PULSE 70; RESP 19; O2SAT 95
[2022-01-11] MEDS: predniSONE 20 MG TABLET 40 MG PO (08:23)
[2022-01-11] MEDS: MESALAMINE 400 MG DELAYED RELEASE CAPSULE 800 MG PO ×2 (08:23→12:09)
[2022-01-11] MEDS: MOXIFLOXACIN HCL 0.5% 3 ML OPHTH SOLN 1 DROP EACH EYE ×2 (08:23→12:10)
--- NOTE | 2022-01-11 12:53 | WPDGIPROGNO ---
Progress Note: A&P Assessment and Plan (1) Colitis: Code(s): K52.9 - Noninfective gastroenteritis and colitis, unspecified Status: Acute Assessment and Plan: probably IBD based on colonoscopy findings, path report still pending he can go home today with mesalamine and will transition to oral steroids with slow taper (40 mg daily to decrease 5 mg each week) pending TB and HBV status follow-up in office in 2-4 weeks, most likely will need biologics since he also has extraintestinal manifestations. (2) Diarrhea: Code(s): R19.7 - Diarrhea, unspecified Status: Acute Assessment and Plan: improving ok to discontinue antibiotics hi negative (3) Weight loss: Code(s): R63.4 - Abnormal weight loss Status: Acute (4) Joint pain: Code(s): M25.50 - Pain in unspecified joint Status: Acute Assessment and Plan: RF negative pending other blood work Subjective Date/time seen: 01/11/22 12:53 Interval history: he is doing much better, only had 2 BM today and tolerating diet Review of Systems Review of Systems: All systems reviewed & are unremarkable except as noted in HPI and below Exam Const: General: comfortable and no acute distress HENMT: General nose exam: Normal nares present Eyes: General: appearance normal, both eyes and all related structures Neck: Neck: no JVD Resp: Auscultation: clear to auscultation bilaterally Cardio: Rate: regular rate Rhythm: regular rhythm GI: Inspection: non-distended GI Palp: Yes Soft to palpation Skin: General skin exam: normal color Neuro: General: gait normal Speech: normal speech Extrem: General: normal to inspection Psych: Mental Status: mental status grossly normal Objective Data Vital Signs Vital Signs: Vital Signs - 24 hr 01/10/22 13:36 01/10/22 20:00 01/10/22 22:00 Temperature 97.5 F L 97.5 F L Pulse Rate 71 72 Respiratory Rate 20 20 Blood Pressure 115/79 136/88 Pulse Oximetry 97 97 Oxygen Delivery Room Air 01/11/22 06:00 01/11/22 08:00 Temperature 96.3 F L Pulse Rate 70 70 Respiratory Rate 19 19 Blood Pressure 113/76 Pulse Oximetry 95 95 Oxygen Delivery Room Air Intake/Output Intake/Output: Intake & Output 01/08/22 01/09/22 01/10/22 08/11/22 23:59 23:59 23:59 23:59 Intake Total 1100 2805 3202 1320 Balance 1100 2805 3202 1320 Meds/Results Medications: Active Medications Generic Name Dose Route Start Last Admin Trade Name Freq PRN Reason Stop Dose Admin Atorvastatin Calcium 10 mg 01/08/22 21:00 01/10/22 21:11 Atorvastatin 10 Mg Tablet PO 10 mg HS MADHURI Administration Dicyclomine HCl 20 mg 01/08/22 19:38 Dicyclomine Hcl 10 Mg Capsule PO TID PRN abdominal cramping Fluticasone Propionate 2 spray 01/08/22 19:38 Fluticasone Propionate 0.05% Na Spr 16 Gm Btl (*Bkc) NASAL DAILY PRN Allergy Symptoms Piperacillin/Tazobactam/Dextrose 3.375 gm in 50 mls @ 100 mls/hr 01/08/22 18:00 01/11/22 12:09 Zosyn 3.375 Gm/D5w 50ml Pm IVPB 100 mls/hr Q6H MADHURI Administration Mesalamine 800 mg 01/09/22 13:00 01/11/22 12:09 Mesalamine 400 Mg Delayed Release Capsule PO 800 mg TID MADHURI Administration Moxifloxacin HCl 1 drop 01/09/22 09:00 01/11/22 12:10 Moxifloxacin Hcl 0.5% 3 Ml Ophth Soln EACH EYE 1 drop TID MADHURI Administration Prednisone 40 mg 01/11/22 08:00 01/11/22 08:23 Prednisone 20 Mg Tablet PO 40 mg DAILY@0800 MADHURI Administration Sertraline HCl 200 mg 01/08/22 21:00 01/10/22 21:11 Sertraline Hcl 50 Mg Tablet PO 200 mg HS MADHURI Administration Radiology Results: ITS Impressions Abdomen/Pelvis CT 01/08/22 09:54 IMPRESSION: 1. Mild wall thickening of the rectosigmoid with interval improvement, consistent with colitis. Am Follow-up Billing Inpatient Follow-up [id number] [facility]
[2022-01-11 13:22] LABS: NIL 0.01 IU/mL; Quantiferon TB Plus, 1T NEGATIVE (NEGATIVE); TB1-NIL 0.01 IU/mL; TB2-NIL 0.01 IU/mL
--- NOTE | 2022-01-11 13:22 | PM.DS ---
DS: Admitting Diagnosis Discharge Date 01/15/2022 1511 Admitting Diagnosis Colitis Acute cystitis Conjucntivitis, bilateral DS: Discharge Diagnosis Discharge Diagnosis (1) Colitis: Code(s): K52.9 - Noninfective gastroenteritis and colitis, unspecified Status: Acute Assessment and Plan: Patient presented with c/o abd pain. CT consistent with rectosigmoid colitis. He completed a 10 day course of Cipro and Flagyl from last admission, but reported minimal improvement in symptoms while on and after antibiotics. GI consulted and appreciate recommendations. Colonoscopy 01/09/22 demonstrating skip lesions concerning for Crohn's disease. Biopsy pending. Patient was started on methylprednisolone 20 mg Q8 hours IV on the day of admission for presumed inflammatory bowel syndrome and then transition to oral prednisone PO with 6-8 week slow taper, starting 01/11/22 Mesalamine 800 mg TID started by GI on 01/09/22 with good tolerance. This was continued on discharge, however, the patient's insurance only covered mesalamine 1.2 gram TID and his dose was changed. He was treated with Zosyn 3.375 mg IV Q6 hours starting 01/08/22 and transitioned to Augmentin 875/125 mg PO BID on 01/11/22 and to be continued for 7 more days (total 10 day course) His diet was advanced to low fat diet with ensure TID with good tolerance. Continue PRN bentyl for cramping was ordered. (2) UTI (urinary tract infection): Code(s): N39.0 - Urinary tract infection, site not specified Status: Acute Assessment and Plan: C/o urinary frequency. Previously treated with Cipro and Flagyl x 10 days as above. 12/28/21 urine culture without growth. Treated with IV zosyn for above. He was transitioned to Augmentin as above. urine culture without growth. Resolved, no current urinary symptoms. (3) Conjunctivitis: Code(s): H10.9 - Unspecified conjunctivitis Status: Acute Assessment and Plan: continue moxifloxacin eye gtt both eyes x 10 days (started Saturday01/05/22) could be consistent with ulcerative colitis CRP mildly elevated 4.2 Improving. (4) Low thyroid stimulating hormone (TSH) level: Code(s): R79.89 - Other specified abnormal findings of blood chemistry Status: Acute Assessment and Plan: SH 0.255, normal Free T4 and Free T3. Patient is not currently on thyroid medications. repeat thyroid panel in 4-6 weeks. (5) Mixed hyperlipidemia: Code(s): E78.2 - Mixed hyperlipidemia Status: Chronic Assessment and Plan: Continue with atorvastatin DS: Summary Hospital Course Hospital Course: Donte Martin is a 46-year-old male patient who presented to the emergency room with complaints of abdominal cramping and diarrhea.? The patient had been in the emergency room on 12/25/2021 with the same complaints and was diagnosed with colitis.? The patient stated completed a round of Cipro and Flagyl for 10 days now.? The patient stated that he did see Dr. Diaz midlevel and that he had a full stool workup.? He has noted some blood in his stools.? He had no prior history of having any colonoscopies, diverticulosis or diverticulitis.? On 12/28/2021 he did have an abdominal pelvis CT which shows wall thickening of the colon from the distal descending colon through the cecum consistent with colitis.? The patient stated that he has lost approximately 15 lb since he was last seen in the emergency room.? The patient stated that he was multiple stools daily.? He was treated with Bentyl but still continues to have abdominal cramping.? On readmission, CT scan showed mild wall thickening of rectosigmoid with interval improvement consistent with colitis.? Patient was also had a UA concerning for acute infection and c/o urinary frequency and was started on Zosyn.? H&H is 12.7 and 39.0 and was previously normal during his previous hospitalization? The patient was treated IV fluids, Solu-Medrol and Zosy
[2022-01-11 21:50] LABS: Anti Cyclic Citrullinated Pept <16 Units (<20)
[2022-01-12 03:24] LABS: Hepatitis B Core Ab Total Nonreactive (Nonreactive)
[2022-01-14 19:56] LABS: TPMT Activity 10
== END 2022-01-11 13:33 | disposition home or self-care (01) | DRG 392 ==
LOC: ANHED 12:08 → ANH3MEDSUR 12:35
PROVIDERS: Internal Medicine Gastroenterology; Nurse Practitioner; Admitting Provider Student in an Organized Health Care Education/Training Program; Emergency Provider Emergency Medicine; PCP Family Medicine; Visit Provider Nurse Practitioner Family
PROC: 0DJD8ZZ Inspection of Lower Intestinal Tract, Via Natural or Artificial Opening Endoscopic (ICD-10-PCS; CPT 45378; principal; 2022-01-09 12:00)
DX: K52.3 Indeterminate colitis (principal); N39.0 Urinary tract infection, site not specified; K57.30 Diverticulosis of large intestine without perforation or abscess without bleeding; K62.89 Other specified diseases of anus and rectum; H10.89 Other conjunctivitis; D64.89 Other specified anemias; R35.0 Frequency of micturition; E78.2 Mixed hyperlipidemia; I10 Essential (primary) hypertension; M25.50 Pain in unspecified joint; R63.4 Abnormal weight loss
CPT/HCPCS: 36415; 74177; 80053; 81001; 82274; 82657; 82728; 83605; 83690; 83735; 84439; 84443; 84480; 85014; 85018; 85025; 86038; 86140; 86200; 86430; 86480; 86703; 86704; 86706; 87086; 87340; 88305; 96361; 96365; 96374; 96375; 96376; 99285; A9270; G0378; G0432; J2405; J2543; J2704; J2920; J2930; J7030; J7120; J7512; Q9967

== ENCOUNTER 2022-11-03 12:17 | Emergency (ER) | payer OTHER, SELFPAY ==
[2022-11-03 12:23] VITALS: BP 119/89; PULSE 117; RESP 16; TEMP 36.2; O2SAT 98
--- NOTE | 2022-11-03 12:25 | ED.URI ---
HPI - URI/Sore Throat General Chief Complaint: Upper Respiratory Infection Stated Complaint: sinus/upper respiratory Time Seen by Provider: 11/03/22 12:27 Source: patient and RN notes reviewed Mode of arrival: ambulatory Limitations: no limitations History of Present Illness HPI Narrative: 47-year-old male presented for complaint of cough worsening over the past 3 days. States he has rattling in his chest at night when lying flat. Cough is productive yellow/brown sputum. Also endorses fatigue, nasal congestion and drainage, which he relates to allergy season. He has been taking Fernanda-D and Flonase. History of chronic sinusitis and hypertrophy of nasal turbinates. Follows with Dr Pro. Denies shortness of breath, wheezing, nausea, vomiting or diarrhea fevers or chills. MD elicited complaint: cough Related Data Home Medications Medication Instructions Recorded Confirmed sertraline 100 mg tablet 200 mg PO DAILY 05/31/22 08/16/22 Allergies Allergy/AdvReac Type Severity Reaction Status Date / Time No Known Allergies Allergy Verified 08/16/22 14:16 Review of Systems Review of Systems: CONSTITUTIONAL: Denies chills, sweats, fever EYES: Denies visual changes, redness, or discharge ENT: Reports rhinorrhea, congestion, denies sinus pain, otalgia, sore throat CARDIOVASCULAR: Denies chest pain, palpitations, edema RESPIRATORY: Reports cough, post nasal drainage. 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 He is a lifelong nonsmoker. He does not use any alcohol marijuana or illicit drugs. His is the durable power contract attorney for healthcare. Code status full code Smoking status: Never smoker Alcohol intake: current Substance use type: does not use Lack of Transportation: No Lack of Food: Never True Current Housing: I Have Housing Concerned About Future Housing: No Difficulty Paying Gas/Electric Bills: No Difficulty Paying for Meds: No Currently Unemployed: No Education: Bachelor's Degree Difficulty w/ Childcare or Family Care: No Living arrangements: with family Gender identity (if verbalized by the patient): Male Spiritual care concerns: No Exam Narrative: GENERAL: mildly Ill-appearing, nontoxic no acute distress. HEAD: Normocephalic EYES: PERRLA, conjunctivae clear ENT: Mucous membranes moist. TM pearly perez with dull light reflex bilaterally; no tragal tenderness. Oropharynx erythematous without lesions or exudate NECK: Supple. No lymphadenopathy CHEST: Clear to auscultation, breath sounds equal. Cough is harsh, nonproductive. No wheezing, rhonchi, rales, or stridor. No respiratory distress, speaks in full sentences. HEART: Regular rate and rhythm. SKIN: Warm, dry, no rash. NEURO: Alert and oriented x3. PSYCH: Normal mood and affect Course Course Emergency Course: Patient is aware of diagnosis, understands and agrees to treatment plan. Anticipatory guidance given. Patient agrees to fol
== END 2022-11-03 12:37 | disposition home or self-care (01) ==
PROVIDERS: Emergency Provider Nurse Practitioner Family; PCP Family Medicine
DX: J40 Bronchitis, not specified as acute or chronic (principal); I10 Essential (primary) hypertension; E78.2 Mixed hyperlipidemia; F41.9 Anxiety disorder, unspecified; F32.A Depression, unspecified
CPT/HCPCS: 99213; G0463

== ENCOUNTER 2022-12-10 07:39 | Day surgery (SDC) | payer OTHER, SELFPAY ==
[2022-11-22 10:31] VITALS: BMI 30.9
--- NOTE | 2022-12-07 12:53 | WPDANESEPPF ---
Anes - Initial Pre Proc Eval Procedure: Operation Date: 12/10/22 09:30 Proposed Procedures p Diagnostic Colonoscopy - Malick Watson MD Date/Time: 12/07/22 12:53 Surgeon: Malick Watson MD Pre Op Diagnosis: Crohns disease of Large Intestine w/o Complication Patient Data Age: 47 Gender: M Height: 1.78 m Weight: 98 kg Allergies Allergy/AdvReac Type Severity Reaction Status Date / Time No Known Allergies Allergy Verified 12/10/22 08:24 Home Medications Medication Instructions Recorded Confirmed Type adalimumab 40 mg/0.8 mL See Rx Instructions .Route 06/05/22 12/10/22 Rx subcutaneous pen kit (Humira Pen) .COMPLEX #2 ea atorvastatin 10 mg tablet 10 mg PO HS #90 tabs 08/06/22 12/10/22 Rx sildenafil 100 mg tablet (Viagra) 100 mg PO DAILY #30 tabs 11/30/22 12/10/22 Rx Patient hx anesthesia problems: none Family hx anesthesia problems: none Results Review: All pre-operative results and documents have been reviewed as part of the pre-operative evaluation. 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 He is a lifelong nonsmoker. He does not use any alcohol marijuana or illicit drugs. His is the durable power employee benefits attorney for healthcare. Code status full code Smoking status: Never smoker Alcohol intake: current Alcohol use details: occassional Substance use: never Substance use type: does not use Lack of Transportation: No Lack of Food: Never True Current Housing: I Have Housing Concerned About Future Housing: No Difficulty Paying Gas/Electric Bills: No Difficulty Paying for Meds: No Currently Unemployed: No Education: Bachelor's Degree Difficulty w/ Childcare or Family Care: No Living arrangements: with family Gender identity (if verbalized by the patient): Male Spiritual care concerns: No Anes - Eval Final PreProcedure Day of Procedure 12/07/22 12:53 Patient weight: obese Heart: regular rate and rhythm Lungs: clear to auscultation Airway: Mallampati scale class II Neurological: alert and oriented Last oral intake: >/= 8 hours ASA classification: III Emergent: no Anesthetic plan: proceed Anesthesia type and monitoring: general GIVS and standard monitoring Results Review: All pre-operative results and documents have been reviewed as part of the pre-operative evaluation. Informed Consent: The patient's anesthetic plan and its attendant risks and benefits were discussed with the patient/family/POA. Questions were solicited and answers provided to the satisfaction of the patient/family/POA.
[2022-12-10 08:21] VITALS: BP 133/96; PULSE 79; RESP 16; TEMP 36.1; O2SAT 98
[2022-12-10] MEDS: LACTATED RINGERS 1,000 ML 150 ML IV CONT (08:33)
--- NOTE | 2022-12-10 09:24 | WPDHPUPDATE1 ---
History and Physical Update Update Date/Time: 12/10/22 09:24 History and Physical has been reviewed, including an updated exam of the patient. There are NO changes in the patient's condition. Risks, benefits, and alternatives have been discussed and questions answered. Patient agrees to proceed with procedure.
[2022-12-10 09:41] VITALS: BP 111/79; PULSE 86; RESP 20; O2SAT 98
[2022-12-10 09:51] VITALS: BP 116/96; PULSE 83; RESP 18; O2SAT 100
[2022-12-10 10:01] VITALS: BP 117/90; PULSE 76; RESP 20; O2SAT 100
--- NOTE | 2022-12-10 11:13 | WPDANESPN ---
Anes - Prog Note Post-Op Date/Time: 12/10/22 11:13 Cardiovascular status: normal Respiratory status: normal Airway patency: baseline Mental status: baseline Post-Op hydration status: normal Vital Signs: Last Vital Signs Temp 36.1 C L 12/10/22 08:21 Pulse 76 12/10/22 10:01 Resp 20 12/10/22 10:01 BP 117/90 12/10/22 10:01 Pulse Ox 100 12/10/22 10:01 O2 Del Method Room Air 12/10/22 10:01 Pain Score (VAS): 0 I/O: Intake & Output 12/09/22 12/10/22 12/10/22 23:59 07:59 15:59 Intake Total 450 Balance 450 Post-procedural complaints: none Patient Feedback: Patient satisfied with anesthetic care. Other Findings: Patient vital signs back to baseline. Patient denies nausea and vomiting. Patient's pain under control. Patient OK for discharge.
== END 2022-12-10 10:08 | disposition home or self-care (01) ==
PROVIDERS: PCP Family Medicine; Visit Provider Internal Medicine Gastroenterology
PROC: 0DJD8ZZ Inspection of Lower Intestinal Tract, Via Natural or Artificial Opening Endoscopic (ICD-10-PCS; CPT 45378; principal; 2022-12-10 09:30)
DX: K50.90 Crohn's disease, unspecified, without complications (principal)
CPT/HCPCS: 45380

== ENCOUNTER 2022-12-10 09:00 | Outpatient (NON) | payer OTHER, SELFPAY | END 2022-12-10 09:01 | disposition home or self-care (01) | LOC: ANHLAB 12-11 07:22 | PROVIDERS: PCP Family Medicine; Visit Provider Internal Medicine Gastroenterology | DX: K52.9 Noninfective gastroenteritis and colitis, unspecified (principal) | CPT/HCPCS: 88305 ==

== ENCOUNTER 2023-08-20 08:53 | Outpatient (CLI) | payer OTHER, SELFPAY ==
--- NOTE | ~2023-08-20 | CT_ITS ---
EXAMINATION: CT sinus wo con DATE: 08/20/2023 09:07 INDICATION: Specified disorders of nose and nasal sinuses TECHNIQUE: Computed tomography (CT) of the paranasal sinuses was performed without contrast. Iterativ e reconstruction technique was employed. Exam dose: 417.98 mGy-cm total exam DLP. COMPARISON: None FINDINGS: There is prominent rightward deviation of the upper portion of the nasal septum and promine nt leftward deviation of the lower portion of the septum. There is prominent soft tissue swelling of the nasal turbinates, right greater than left. A portion o f the right middle nasal turbinate extends into the medial aspect of the right maxillary sinus throug h a medial maxillary sinus bony wall defect. The ostiomeatal units are patent bilaterally. Paranasal sinuses are normally developed and aerated with only a small focal area of mucoperiosteal t hickening at the inferomedial aspect of left maxillary sinus. The mastoid air cells are well-developed and aerated bilaterally. Middle and inner ear apparatus appear normal bilaterally. IMPRESSION: Prominent rightward deviation of upper nasal septum, prominent leftward deviation of the lower portion of nasal septum Patent ostiomeatal units, paranasal sinuses and mastoid air cells Reviewed, dictated and finalized at [facility]. Reviewed, dictated and finalized at [facility]. IMPRESSION: Prominent rightward deviation of upper nasal septum, prominent lef tward deviation of the lower portion of nasal septum Patent ostiomeatal units, paranasal sinuses and mastoid air cells
== END 2023-08-20 08:54 ==
LOC: GOSHIMG 08:56
PROVIDERS: PCP Family Medicine; Visit Provider Family Medicine
DX: J34.89 Other specified disorders of nose and nasal sinuses (principal); J34.2 Deviated nasal septum
CPT/HCPCS: 70486

== ENCOUNTER 2023-08-23 08:30 | Outpatient (CLI) | payer OTHER, SELFPAY ==
--- NOTE | 2023-09-04 12:16 | WPDHOMESLEEP ---
Sleep Study - Home Unattended Date of Study: 08/23/23 Ordering Provider: Donte Wilkerson MD Interpreting Provider: Edith Bonds, DO Home Sleep Study Type: Watch PAT Height: 1.78 m Weight: 102.058 kg Body Mass Index: 32.3 Neck Circumference (inches): 17.5 [place]: 11 Reason for Sleep Study Snoring Sleep History The patient is a 48-year-old male with chronic sinusitis, GERD and ulcerative colitis that had a sleep study ordered for evaluation of snoring. The patient denies awakening from sleep short of breath. He rarely awakens at night with heartburn, belching or cough. He frequently snores and is frequently loud enough that others complain. He frequently has trouble sleeping when he has a cold. He denies waking up gasping for air throughout the night. He occasionally has breathing problems at night observed by himself or others. He rarely sweats excessively at night. He denies having heart palpitations or irregular heartbeats during the night. He occasionally falls asleep during the day but never while driving. He denies sleep paralysis and cataplexy. He rarely has trouble at school or work due to sleepiness. He rarely experiences vivid dreamlike scenes upon awakening or falling asleep. He denies feeling afraid of going to sleep. He denies having nightmares. He occasionally remembers his dreams. He frequently has thoughts racing through his mind. He rarely feels sad or depressed. He occasionally has anxiety. He rarely has muscular tension. He rarely notices parts of his body jerk. He denies kicking during the night. He rarely experiences crawling and aching feelings in his legs and rarely has leg pain during the night. He denies grinding his teeth during sleep and denies awakening with morning jaw pain. He is rarely bothered by pain during the day but never awakened by pain during the night. He rarely wakes up feeling stiff in the morning. He rarely wakes up with sore or achy muscles. He denies waking up with pain in the neck, spine and other joints. He goes to bed at 10:00 p.m. on weekdays and between 10:00 p.m. to 1:00 a.m. weekends. He can fall asleep relatively quickly. The amount of times he wakes up throughout the night is variable and the amount of time it takes for him to fall back asleep is variable. He wakes up at 7:00 a.m. on both weekdays and weekends. He typically gets 7-8 hours of sleep per night. He does not stay in bed after waking up in the morning. He currently lives with his and daughter. He denies consuming any caffeinated beverages within 2 hours of bedtime. He denies engaging in physical exercise before bedtime. He will watch television before falling asleep. He rarely takes naps in afternoon or the evening. He consumes 2 caffeinated beverages per day. He consumes alcohol a few times per week. 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 He is a lifelong nonsmoker. He does not use any alcohol marijuana or illicit drugs. His is the durable power commonwealth attorney for healthcare. Code status full code Smoking status: Never smoker Alcohol in
[2023-09-04 12:30] VITALS: BMI 32.3
== END 2023-08-26 07:30 | disposition home or self-care (01) ==
LOC: ANHCSM 08:31
PROVIDERS: PCP Family Medicine; Visit Provider Family Medicine
DX: G47.9 Sleep disorder, unspecified (principal); G47.33 Obstructive sleep apnea (adult) (pediatric)
CPT/HCPCS: 95800

== ENCOUNTER 2023-08-27 12:35 | Outpatient (CLI) | payer OTHER, SELFPAY ==
[2023-08-29 14:19] LABS: NIL 0.05 IU/mL; Quantiferon TB Plus, 1T NEGATIVE (NEGATIVE); TB1-NIL 0.04 IU/mL; TB2-NIL 0.04 IU/mL
== END 2023-08-27 12:36 | disposition home or self-care (01) ==
LOC: ANHLAB 12:36
PROVIDERS: PCP Family Medicine; Visit Provider Internal Medicine Gastroenterology
DX: K51.90 Ulcerative colitis, unspecified, without complications (principal)
CPT/HCPCS: 36415; 86480

== ENCOUNTER 2023-09-11 08:35 | Outpatient (CLI) | payer OTHER, SELFPAY ==
--- NOTE | 2023-09-22 18:58 | WPDSLEEPSTUD ---
Sleep Study Date of Study: 09/11/23 Ordering Provider: Donte Wilkerson MD Interpreting Physician: Edith Bonds DO Sleep Study Type: CPAP Titration Height: 1.78 m Weight: 102.058 kg Body Mass Index: 32.3 Neck Circumference (inches): 17.5 [place]: 11 Reason for Sleep Study The patient had a WatchPAT home sleep test on 08/23/2023 that showed an overall AHI of 75.7 with desaturation down to 81%. 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 Sleep History The patient is a 48-year-old male with chronic sinusitis, GERD and ulcerative colitis that had a sleep study ordered for evaluation of snoring. The patient denies awakening from sleep short of breath. He rarely awakens at night with heartburn, belching or cough. He frequently snores and is frequently loud enough that others complain. He frequently has trouble sleeping when he has a cold. He denies waking up gasping for air throughout the night. He occasionally has breathing problems at night observed by himself or others. He rarely sweats excessively at night. He denies having heart palpitations or irregular heartbeats during the night. He occasionally falls asleep during the day but never while driving. He denies sleep paralysis and cataplexy. He rarely has trouble at school or work due to sleepiness. He rarely experiences vivid dreamlike scenes upon awakening or falling asleep. He denies feeling afraid of going to sleep. He denies having nightmares. He occasionally remembers his dreams. He frequently has thoughts racing through his mind. He rarely feels sad or depressed. He occasionally has anxiety. He rarely has muscular tension. He rarely notices parts of his body jerk. He denies kicking during the night. He rarely experiences crawling and aching feelings in his legs and rarely has leg pain during the night. He denies grinding his teeth during sleep and denies awakening with morning jaw pain. He is rarely bothered by pain during the day but never awakened by pain during the night. He rarely wakes up feeling stiff in the morning. He rarely wakes up with sore or achy muscles. He denies waking up with pain in the neck, spine and other joints. He goes to bed at 10:00 p.m. on weekdays and between 10:00 p.m. to 1:00 a.m. weekends. He can fall asleep relatively quickly. The amount of times he wakes up throughout the night is variable and the amount of time it takes for him to fall back asleep is variable. He wakes up at 7:00 a.m. on both weekdays and weekends. He typically gets 7-8 hours of sleep per night. He does not stay in bed after waking up in the morning. He currently lives with his and daughter. He denies consuming any caffeinated beverages within 2 hours of bedtime. He denies engaging in physical exercise before bedtime. He will watch television before falling asleep. He rarely takes naps in afternoon or the evening. He consumes 2 caffeinated beverages per day. He consumes alcohol a few times per week. 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 He is a lifelong nonsmoker. He does not use any alcoho
[2023-09-22 19:06] VITALS: BMI 32.3
== END 2023-09-12 07:12 | disposition home or self-care (01) ==
LOC: ANHCSM 08:37
PROVIDERS: PCP Family Medicine; Visit Provider Family Medicine
DX: G47.33 Obstructive sleep apnea (adult) (pediatric) (principal)
CPT/HCPCS: 95811

== ENCOUNTER 2023-09-19 09:39 | Outpatient (CLI) | payer OTHER, SELFPAY ==
--- NOTE | 2023-09-19 10:04 | ECHO_ITS ---
Patient Info Name: Donte Martin Age: 48 years : 1975 Gender: Male Ht: 70 in Wt: 225 lbs BSA: 2.28 m2 HR: 68 bpm BP: 137 / 95 mmHg Technical Quality: Fair Exam Date: 09/19/2023 10:13 AM Exam Location: [facility] Lab Patient Status: Outpatient Admit Date: 09/19/2023 Staff Ordering Physician: Donte Wilkerson MD R Programmer: Sofia Cai RDCS Attending Provider: Donte Wilkerson MD Referring Physician: Rock LAMB; Exam Type: CA echo dop color flow w con Study Info Indications - OBSTRUCTIVE SLEEP APNEA Complete two-dimensional, color flow and Doppler transthoracic echocardiogram is performed with contrast to opacify the left ventricle and to improve the deliniation of the left ventricle endocardial borders. Contrast/Agitated Saline Contrast/Ag. Saline: Definity Amount: 2.00 ml Administered By: Sofia Cai [facility] Existing IV Access: No New IV Access: Left Site Condition: IV removed Summary 1. Definity contrast administered improved wall motion interpretation. 2. Left ventricular chamber dimension is normal. 3. Left ventricular systolic function is normal, estimated at 55-60%. 4. The left ventricular diastolic function is grade I diastolic dysfunction. 5. E/e' 10 is mildly elevated. 6. Left atrial chamber dimension is mildly enlarged. 7. The mitral valve has mildly calcified annulus. 8. There is moderate mitral valve regurgitation. 9. No pulmonary hypertension, estimated pulmonary arterial systolic pressure is 26 mmHg. Left Ventricle E/e' 10 is mildly elevated. Definity contrast administered improved wall motion interpretation. Left ventricular chamber dimension is normal. Left ventricular systolic function is normal, estimated at 55-60%. The left ventricular diastolic function is grade I diastolic dysfunction. Right Ventricle Right ventricular chamber dimension is normal. Right ventricular systolic function is normal. Left Atria Left atrial chamber dimension is mildly enlarged. Right Atria Right atrial chamber dimension is normal. Aortic Valve The aortic valve is trileaflet. There is no aortic valve stenosis. There is no aortic valve regurgitation. Pulmonic Valve There is no pulmonic regurgitation. Mitral Valve The mitral valve has mildly calcified annulus. There is no mitral valve stenosis. There is moderate mitral valve regurgitation. Tricuspid Valve There is no tricuspid valve regurgitation. No pulmonary hypertension, estimated pulmonary arterial systolic pressure is 26 mmHg. Pericardium/Pleural There is no pericardial effusion. Inferior Vena Cava Normal inferior vena cava with >50% collapse upon inspiration consistent with normal right atrial pressure, 5 mmHg. Aorta The aortic root size at the sinus of Valsalva is normal. Left Ventricular Outflow Tract Name Value Normal LVOT 2D LVOT Diameter 2.12 cm LVOT Doppler LVOT Peak Gradient 4 mmHg LVOT Mean Gradient 2 mmHg LVOT VTI 19.59 cm LVOT VTI/AV VTI Ratio 0.80 LVOT Stroke Volume 69.38 ml
[2023-09-19] MEDS: PERFLUTREN LIPID MICROSPHERES 1.5 ML VIAL DILUTED TO 10 ML TOTAL VOLUME IV PUSH (10:40)
--- NOTE | 2023-09-19 12:06 | IVDEFINITY ---
Prior to administration of IV Definity the patient was educated on the risks and benefits of the imaging enhancing agent including potential adverse side effects. The patient verbalized understanding. Allergies were verified. No exclusion criteria were identified and at least one of the following inclusion criteria were met: 1) physician request, 2) patient technically difficult to image (per the [place] [employer] Echocardi[employer] guidelines of two or more segments not discernable within the apical view), or 3) questionable left ventricular function. ?
== END 2023-09-19 09:40 | disposition home or self-care (01) ==
LOC: ANHCARD 09:40
PROVIDERS: PCP Family Medicine; Visit Provider Family Medicine
DX: G47.33 Obstructive sleep apnea (adult) (pediatric) (principal); I34.0 Nonrheumatic mitral (valve) insufficiency
CPT/HCPCS: C8929; Q9957